=== PATIENT | male | born 1975 | race Caucasian/White ===

== ENCOUNTER 2023-09-23 03:28 | Emergency (ER) | payer OTHER ==
[~2023-09-23] VITALS: Ht 172.7 cm; Wt 99.8 kg
[2023-09-23] MEDS ORDERED: IBUPROFEN 800 MG TABLET ONE (04:06)
[2023-09-23] MEDS: IBUPROFEN 800 MG TABLET PO ONE (04:12)
[2023-09-23] MEDS ORDERED: NAPR500T6 PO (05:06)
[2023-09-23 05:32] VITALS: BP 120/80; TEMP 98; O2SAT 97
== END 2023-09-23 05:33 | disposition home or self-care (01) ==
LOC: ER 03:35
DX: S62.613A Displaced fracture of proximal phalanx of left middle finger, initial encounter for closed fracture (principal); Z79.899 Other long term (current) drug therapy; W22.8XXA Striking against or struck by other objects, initial encounter; Y93.89 Activity, other specified; Y92.89 Other specified places as the place of occurrence of the external cause; Y99.8 Other external cause status
CPT/HCPCS: 73140; A4606; A4663